=== PATIENT | female | born 1960 | race Two or more races ===

== ENCOUNTER 2025-11-03 09:59 | Outpatient (AMB) | payer BC, SELFPAY ==
--- NOTE | 2025-11-03 10:08 | A.PHYSOV ---
Intake Visit Reasons: NPV CCA Ref- eval for back injection Intake Note: Patient is a 65 year old female in office today as new patient for back pain. No images found anywhere but has injection with [facility] many years ago. 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 She has had this pain for several years, which she describes as a sciatic pain that shoots from her low back down both legs into her knees. The pain is exacerbated by sitting and is present with most activities, with some relief upon standing. Past interventions include an injection at [facility] years ago, which provided good relief. The nature of the procedure is not clear to me. She has also undergone physical therapy. She reports a history of a lumbar MRI several years ago and knee X-rays at an unknown time. She was referred by her primary care physician. Her primary care notes were reviewed today. She is interested in repeating injections. Pain Description - Onset: The patient has experienced the pain for several years. - Location: The pain is in the lower back. - Radiation: The pain is described as a sciatic pain shooting down both legs into the knees. - Exacerbating factors: The pain is worse with sitting and occurs with nearly all activity. - Relieving factors: Pain is reported with sitting, standing, lying down. Results - History of a prior MRI of the lumbar spine several years ago, results not reviewed. - History of prior knee x-rays at an unknown date, results not reviewed. [facility] Medical History (Updated 11/03/25 @ 10:43 by Sherwin Aguero DO) Bilateral knee pain Low back pain Lumbar radiculitis Surgical History (Updated 11/03/25 @ 10:13 by Luci Stephens MA) S/P shoulder joint replacement H/O: hysterectomy Social History (Updated 11/03/25 @ 10:13 by Luci Stephens MA) Alcohol intake: current Alcohol intake frequency: does not drink Patient Tobacco Use Status: Never used Tobacco Use of substances other than those prescribed or required for medical reasons: No Current occupational status: retired Review of Systems Narrative Review of Systems - Musculoskeletal: Reports chronic low back pain with radiation to the knees and pain in the knees. - All other systems were not discussed and are otherwise negative. Denies any change in bowel bladder habits. Denies any fever or chills Physical Exam Exam Exam: Physical Exam - Musculoskeletal: Tenderness to palpation over the sides of the low back but not centrally. Some tenderness on palpation of the right knee. - Neurological: Deep tendon reflexes were checked. Bilateral sciatic provocative maneuvers were negative. Her gait was without antalgia. Tenderness with palpation over right knee medial joint line. No effusion. No crepitance, no ligamentous instability. Dural tension signs were negative. Neurological examination was nonfocal. She was able to perform heel walk and toe walk. Lumbar extension was slightly restricted. Assessment & Plan Assessment & Plan (1) Lumbar radiculitis: Code(s): M54.16 - Radiculopathy, lumbar region Category: Medical (2) Low back pain: Code(s): M54.50 - Low back pain, unspecified Category: Medical (3) Bilateral knee pain: Code(s): M25.561 - Pain in right knee; M25.562 - Pain in left knee Category: Medical Plan Pain Management Plan Patient was informed and verbally consented to the use of an ambient scribe for clinic note documentation during this visit. 1. Chronic Low Back Pain With Radiculopathy Given the chronicity of the symptoms and the outdated imaging, a new MRI of the lumbar spine will be ordered to re-evaluate the patient's condition. The patient has elected to have the MRI performed at [facility]. Medical records from her previous treatment at [facility] will be requested to review prior interventions and findings. A follow-up visit is scheduled in one month to discuss the MRI results and formulate a treatment plan. Discussion Notes I discussed with the patient that her last MRI of the lower back was several years ago. I recommended obtaining a new MRI of her lower back, and she agreed to have it done at [facility]. I also explained the need to request her medical records from [facility], and she consented to signing a release form. We will schedule a follow-up appointment in one month to review the MRI results and the requested records. Patient Instructions - We are ordering a new MRI scan of your lower back, as your last one was a long time ago. - The MRI will be done at [facility]. - Someone from the scheduling department at [facility] [place] will call you to set up your MRI appointment. - Please sign the release form so we can get your past medical records from [facility]. - Please schedule a follow-up appointment in our office in one month to review the results. Orders: Orders MR lumbar spine wo con Today M54.16 - Radiculopathy, lumbar region, M54.50 - Low back pain, unspecified Coding Level of Care Code New Pt Level 4 (82637) Add On Problem Visit Only Diagnoses Lumbar radiculitis M54.16 Low back pain M54.50 Bilateral knee pain M25.561; M25.562
== END 2025-11-03 10:42 | disposition home or self-care (01) ==
LOC: HO.HPHYS 09:59
PROVIDERS: PCP Internal Medicine; Visit Provider Physical Medicine & Rehabilitation
DX: M54.16 Radiculopathy, lumbar region (principal); M54.50 Low back pain, unspecified; M25.561 Pain in right knee; M25.562 Pain in left knee
CPT/HCPCS: 99204